=== PATIENT | female | born 1990 | race Hispanic/Latino ===

== ENCOUNTER 2020-01-12 09:32 | Observation (INO) | payer BC ==
[~2020-01-12] VITALS: Ht 160 cm; Wt 90.3 kg
[2020-01-12] MEDS ORDERED: LACTATED RINGERS 1000ML 1,000 ML IV PRN (09:41)
[2020-01-12] MEDS ORDERED: CEFAZOLIN SODIUM 1 GM VIAL ONE (10:05)
[2020-01-12] MEDS ORDERED: CALDOLOR 800MG+NS 250ML 0 ML IV ONE (10:06)
[2020-01-12 10:13] LABS: HEMATOCRIT 29.5 % (36-48); MEAN CORPUSCULAR HEMOGLOBIN 24.7 pg (27.0-33.0); MEAN CORPUSCULAR HGB CONC 31.5 g/dL (32.0-36.0); MEAN CORPUSCULAR VOLUME 78.5 fL (79-99); PLATELET COUNT (AUTO) 203 K/uL (130-400); RED BLOOD CELL COUNT(AUTO) 3.76 MIL/uL (4.00-5.50); RED CELL DISTRIBUTION WIDTH 15.6 % (11.0-15.5); WHITE BLOOD COUNT (AUTO) 5.9 K/uL (4.8-10.8)
[2020-01-12] MEDS ORDERED: CELESTONE SOLUSPAN 6 MG/ML 5ML VIAL ONE (10:14)
[2020-01-13 07:17] LABS: HEPATITIS Bs ANTIGEN SCREEN P Negative (Negative)
== END 2020-01-12 12:00 | disposition home or self-care (01) ==
LOC: LDH 09:32
PROVIDERS: ADMIT Obstetrics & Gynecology; ATTEND Obstetrics & Gynecology
DX: O36.8330 Maternal care for abnormalities of the fetal heart rate or rhythm, third trimester, not applicable or unspecified (principal); Z3A.28 28 weeks gestation of pregnancy
CPT/HCPCS: 36415; 76805; 76828; 85027; 86592; 86850; 86900; 86901; 87340; 96360; A4600 ×2; G0378 ×3; J0702; J7120 ×2; J0690; J1741